=== PATIENT | male | born 1945 | race Asian ===

== ENCOUNTER 2022-03-25 09:12 | Observation (INO) ==
[2022-03-25] MEDS ORDERED: methylPREDNISolone SOD SUCC 125 mg 2 ML VIAL IV ONE (10:30)
[2022-03-25] MEDS ORDERED: Albuterol HFA INHALER 8 gm MDI INH ONE (10:36)
[2022-03-25 11:15] LABS: ABS Basophils 0.1 10^3/ul (0-0.2); ABS Lymphocytes 1.4 10^3/ul (1.0-4.8); ABS Monocytes 1.1 10^3/ul (0-0.8); ABS Neutrophils 8.4 10^3/ul (1.5-7.7); Eosinophil % 0.1 %; Hematocrit 37 % (42-52); Hemoglobin 12.2 g/dL (14.0-18.0); Lymphocyte % 12.4 %; Mean Corpuscular HGB Conc 33 g/dL (31-36); Mean Corpuscular Hemoglobin 31 pg (27-31); Mean Corpuscular Volume 94 fL (80-94); Mean Platelet Volume 8.9 fL (7.4-10.4); Platelet Count 211 10^3/uL (150-450); Red Cell Distribution Width 13 % (10-15); Venous Bicarbonate HCO3 25.7 mmol/L (24-28); White Blood Count 10.9 10^3/uL (3.5-10.8)
[2022-03-25 11:23] LABS: INR 0.98 (0.89-1.11)
[2022-03-25 11:53] LABS: Albumin/Globulin Ratio 1.2 (1-3); Calcium 9.1 mg/dL (8.6-10.3); Globulin 3.3 g/dL (2-4); Potassium 3.5 mmol/L (3.5-5.0); Total Protein 7.3 g/dL (6.4-8.9); eGFR CKD-EPI 73.2 (>60)
[2022-03-25 12:29] LABS: High Sensitivity Troponin 1 Hr 17 pg/mL (<20)
[2022-03-25] MEDS ORDERED: Iohexol 350 (CONTRAST) 500 ML MDV IV ONE (13:03)
[2022-03-25] MEDS ORDERED: Ondansetron 4 mg VIAL 2 MG/ML 2 ml VIAL IV PRN (14:18)
[2022-03-25] MEDS ORDERED: Dextrose 50% Syringe 50 ml 25 GM/50 ML SYRINGE IV PUSH PRN (14:25)
[2022-03-25] MEDS ORDERED: Albuterol HFA INHALER 8 gm MDI INH PRN (14:52)
[2022-03-25] MEDS ORDERED: Enoxaparin 40 MG/0.4 ML SYR SUBCUT SCH (15:00)
[2022-03-25] MEDS ORDERED: NS 0.9% 500 ml BAG 500 ML IV SCH (15:00)
[2022-03-25] MEDS ORDERED: Remdesivir 100 mg Vial 200 MG in NS 0.9% 250 ml 210 ML IV ONE (15:30)
[2022-03-25] MEDS ORDERED: Potassium EFFERVES 25 meq TAB PO ONE (15:51)
[2022-03-25 15:57] LABS: C Reactive Protein 13.65 mg/L (<8.01)
[2022-03-25 18:04] LABS: Ferritin 275.7 ng/mL (24-336)
[2022-03-26] MEDS ORDERED: Senna TAB 8.6 mg TAB PO PRN (02:37)
[2022-03-26 07:35] LABS: ABS Lymphocytes 1.5 10^3/ul (1.0-4.8); ABS Monocytes 0.7 10^3/ul (0-0.8); Hematocrit 33 % (42-52); Hemoglobin 11.3 g/dL (14.0-18.0); Lymphocyte % 11.2 %; Mean Corpuscular HGB Conc 34 g/dL (31-36); Mean Corpuscular Hemoglobin 31 pg (27-31); Mean Corpuscular Volume 92 fL (80-94); Mean Platelet Volume 8.9 fL (7.4-10.4); Platelet Count 213 10^3/uL (150-450); Red Blood Count 3.62 10^6 /uL (4.18-5.48); Red Cell Distribution Width 14 % (10-15); White Blood Count 13.1 10^3/uL (3.5-10.8)
[2022-03-26 07:57] LABS: Albumin 3.7 g/dL (3.2-5.2); Albumin/Globulin Ratio 1.2 (1-3); Calcium 8.7 mg/dL (8.6-10.3); Globulin 3.1 g/dL (2-4); HDL Cholesterol 53.6 mg/dL; Magnesium 2.1 mg/dL (1.9-2.7); Potassium 3.4 mmol/L (3.5-5.0); Total Bilirubin 0.7 mg/dL (0.2-1.0); Total Protein 6.8 g/dL (6.4-8.9); eGFR CKD-EPI 77.6 (>60)
[2022-03-26] MEDS ORDERED: Polyethylene Glycol 3350 17 GM PACKET PO SCH (08:00)
[2022-03-26 08:23] LABS: INR 0.97 (0.89-1.11)
[2022-03-26 12:05] VITALS: BP 113/52
[2022-03-26] MEDS ORDERED: Remdesivir 100 mg Vial 100 MG in NS 0.9% 250 ml 230 ML IV SCH (21:00)
== END 2022-03-26 14:50 | disposition home or self-care (01) ==
LOC: EDHOLD 09:12 → ED 09:12 → MED 21:19
PROVIDERS: ADMIT Pediatrics; ATTEND Pediatrics